=== PATIENT | female | born 2000 | race Caucasian/White ===

== ENCOUNTER 2021-10-01 21:54 | Emergency (ER) | payer OTHER ==
[~2021-10-01] VITALS: Ht 167.6 cm; Wt 52.3 kg
[2021-10-01 22:57] LABS: COLLECTION METHOD CLEAN CATCH
[2021-10-01 23:21] LABS: MUCOUS Present (NOT PRESENT); PH 6 (5-8); SQUAMOUS EPITHELIAL None Seen /hpf (0-10); URINE APPEARANCE Clear (CLEAR/HAZY); URINE BACTERIA None Seen /hpf (NONE SEEN); URINE BLOOD 3+ (NEGATIVE); URINE COLOR Amber (YELLOW); URINE GLUCOSE Negative (NEGATIVE); URINE KETONE Negative (NEGATIVE); URINE NITRATE Positive (NEGATIVE); URINE PROTEIN(semi-quant) Negative (NEGATIVE); URINE RBC 0-2 /hpf (0-2); URINE UROBILINOGEN Negative (NEGATIVE)
[2021-10-02] MEDS ORDERED: MACROBID 1100 MG/CAP PO (00:19)
[2021-10-02 01:33] VITALS: BP 109/75; PULSE 86; TEMP 98.5
== END 2021-10-02 01:33 | disposition home or self-care (01) ==
LOC: COL.ER 21:54
PROVIDERS: Physician Assistant
DX: N30.91 Cystitis, unspecified with hematuria (principal); Z32.02 Encounter for pregnancy test, result negative; Z88.2 Allergy status to sulfonamides